=== PATIENT | female | born 1970 | race Caucasian/White ===

== ENCOUNTER → 2020-08-20 13:52 | Outpatient (CLI) | payer BC, SELFPAY ==
--- NOTE | 2020-08-20 | CA_ITS ---
APPROVED REPORT Left Lower Extremity Venous Study for DVT. 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 Patient states she had her last DVT's in 2007 after an ACL tear injury of RLE. Patient recently had hernia surgery 08/06/20. She received Lovenox injections until 08/12/20. Risk Factors HLD, HTN, DM Past History DVT : Date : 2007 Vein Imaging CFV (L): compressive, spontaneous, phasic, augmentation FEM (L): compressive, spontaneous, phasic, augmentation POP (L): compressive, spontaneous, phasic, augmentation PTV (L): Compressible GSV (L): compressive, spontaneous, phasic, augmentation Peroneals (L):Compressible GAS (L): Compressible Findings No evidence of DVT or superficial thrombophlebitis in the veins scanned of the left lower extremity. Incidental finding of a septated cystic structure with calcified debris in the popliteal fossa of the LLE. Conclusion No evidence of DVT or superficial thrombophlebitis in the veins scanned of the left lower extremity. Incidental finding of a septated cystic structure with calcified debris in the popliteal fossa of the LLE. Electronically signed by : Madeleine Fitzpatrick MD 08/22/2020 13:12:44
== END ==
PROVIDERS: PCP Nurse Practitioner; Visit Provider Family Medicine
DX: M79.662 Pain in left lower leg (principal); D68.51 Activated protein C resistance; Z86.718 Personal history of other venous thrombosis and embolism
CPT/HCPCS: 93971